=== PATIENT | female | born 1980 | race American Indian/Alaskan Native ===

== ENCOUNTER 2016-11-07 12:54 | Emergency (ER) | payer OTHER ==
[2016-11-07 13:05] VITALS: BP 120/76; PULSE 80; RESP 20; TEMP 98.1; O2SAT 99
--- NOTE | 2016-11-07 13:59 | ED PDOC ---
HPI: Back Time Seen by Provider: 11/07/16 13:06 Chief Complaint (Nursing): Back Pain Chief Complaint (Provider): Left upper back pain History Per: Patient History/Exam Limitations: no limitations Onset/Duration Of Symptoms: Intermittent Episodes Current Symptoms Are (Timing): Still Present Quality Of Discomfort: "Pain" Additional Complaint(s): The patient is a 36yo female, who reports over the past 10 years, she has had intermittent episodes of left sided upper back pain. Patient reports similar pain today and states in the past, she has only visited the ED for her pain. She states in her previous visit, she was informed the pain was due to a muscle spasm. Patient denies taking any pain medication today. she denies any trauma, numbness, tingling, chest pain, rash, shortness of breath, palpitations. She offers no additional medical complaints. Past Medical History Reviewed: Historical Data, Nursing Documentation, Vital Signs Vital Signs: Last Vital Signs Temp 98.1 F 11/07/16 13:02 Pulse 80 11/07/16 13:02 Resp 20 11/07/16 13:02 BP 120/76 11/07/16 13:02 Pulse Ox 99 11/07/16 13:02 - Medical History PMH: Asthma Denies: Diabetes, Hepatitis, HIV, HTN, Seizures, Sexually Transmitted Disease - Surgical History Surgical History: No Surg Hx - Family History Family History: States: Unknown Family Hx - Living Arrangements Living Arrangements: With Family - Social History Current smoker - smoking cessation education provided: No Alcohol: None Drugs: Denies - Home Medications Home Medications: Ambulatory Orders Medication Instructions Recorded Cyclobenzaprine [Cyclobenzaprine 10 mg PO TID #10 tab 11/09/15 HCl] Naproxen [Naprosyn] 500 mg PO Q12H #20 tab 11/09/15 Cyclobenzaprine [Cyclobenzaprine 10 mg PO Q8 PRN #30 tab 11/07/16 HCl] Meloxicam [Mobic] 7.5 mg PO DAILY PRN #30 tab 11/07/16 - Allergies Allergies/Adverse Reactions: Allergies Allergy/AdvReac Type Severity Reaction Status Date / Time No Known Allergies Allergy Verified 08/24/14 04:46 Review of Systems ROS Statement: Except As Marked, All Systems Reviewed And Found Negative Cardiovascular: Negative for: Chest Pain, Palpitations Respiratory: Negative for: Shortness of Breath Musculoskeletal: Positive for: Shoulder Pain (left upper back) Neurological: Negative for: Weakness, Numbness Physical Exam - Reviewed Nursing Documentation Reviewed: Yes Vital Signs Reviewed: Yes - Physical Exam Appears: Positive for: Non-toxic, No Acute Distress Head Exam: Positive for: ATRAUMATIC, NORMAL INSPECTION, NORMOCEPHALIC Skin: Positive for: Normal Color Eye Exam: Positive for: Normal appearance Neck: Positive for: Normal Cardiovascular/Chest: Positive for: Regular Rate, Rhythm Respiratory: Positive for: Normal Breath Sounds. Negative for: Accessory Muscle Use, Respiratory Distress Back: Positive for: Normal Inspection, Muscle Spasm (left sided parascapular muscle spasm noted). 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 Negative for: Deformity, Swelling Neurologic/Psych: Positive for: Alert, Oriented. Negative for: Motor/Sensory Deficits - ECG O2 Sat by Pulse Oximetry: 99 (RA) Pulse Ox Interpretation: Normal Medical Decision Making Medical Decision Making: Time: 1310 Impression: Left upper back pain Plan: -- Flexeril 10 mg PO -- Toradol 15 mg IM Reassess Time: 1400 Patient reports feeling better. Informed of the need to follow up with a specialist for further care and imaging studies and patient expresses understanding. Patient is stable for d/c home. Scribe Attestation: Documented by Jennifer Carpio acting as a scribe for AMANDA Mulligan Provider Attestation: All medical record entries made by the Scribe were at my direction and personally dictated by me. I have reviewed the chart and agree that the record accurately reflects my personal performance of the history, physical exam, medical decision making, and the department course for this patient. I have also personally directed, reviewed, and agree with the discharge instructions and disposition. Disposition - Clinical Impression Clinical Impression: Back pain - Disposition [facility]errals: [facility] [Outside] [facility] [[facility]] Disposition: Routine/Home Disposition Time: 14:00 Condition: STABLE Prescriptions: Cyclobenzaprine [Cyclobenzaprine HCl] 10 mg PO Q8 PRN #30 tab PRN Reason: Muscle Spasm Meloxicam [Mobic] 7.5 mg PO DAILY PRN #30 tab PRN Reason: Pain, Mild (1-3) Instructions: Muscle Spasm (ED) Forms: [facility] (Azeri), [facility] ED School/Work Excuse
== END 2016-11-07 13:54 | disposition home or self-care (01) ==
LOC: H.ER 12:54
DX: M54.9 Dorsalgia, unspecified (principal)
CPT/HCPCS: 96372; 99282; J1885

== ENCOUNTER 2017-05-07 20:24 | Emergency (ER) | payer OTHER ==
[2017-05-07] MEDS ORDERED: Sodium Chloride 0.9% 1,000 ML IV SCH (21:30)
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
[2017-05-07 22:09] LABS: BASO % 0.2 % (0.0-2.0); EOS # 0.2 K/uL (0.0-0.7); EOS % 1.9 % (0.0-4.0); LYMPH # 2.2 K/uL (1.0-4.3); LYMPH % 23.8 % (20.0-40.0); MEAN CELL VOLUME 76.4 fl (81.0-99.0); MEAN CORPUSCULAR HEMOGLOBIN 24.3 pg (27.0-31.0); MEAN CORPUSCULAR HGB CONC 31.8 g/dL (33.0-37.0); MEAN PLATELET VOLUME 9.4 fl (7.2-11.7); MONO # 0.5 K/uL (0.0-0.8); MONO % 5.9 % (0.0-10.0); NEUT # 6.2 K/uL (1.8-7.0); NEUT % 68.2 % (50.0-75.0); NRBC % 0.1 % (0.0-0.0); RBC 4.93 Mil/uL (3.80-5.20); WHITE BLOOD COUNT 9.1 K/uL (4.8-10.8)
[2017-05-07 22:26] LABS: ALBUMIN 3.8 g/dL (3.5-5.0); ALT/SGPT 78 U/L (9-52); AST/SGOT 126 U/L (14-36); BLOOD UREA NITROGEN 13 mg/dl (7-17); GFR AFRICAN-AMERICAN > 60; GFR NON-AFRICAN AMERICAN > 60; LIPASE 95 U/L (23-300)
[2017-05-07] MEDS ORDERED: Potassium Chloride 10 mEq ER Tab PO ONE (22:48)
[2017-05-07 23:23] LABS: SQUAMOUS EPITHIAL 6 /hpf (0-5); URINE BACTERIA RARE (<OCC); URINE BILIRUBIN NEGATIVE (NEGATIVE); URINE BLOOD NEGATIVE (NEGATIVE); URINE CLARITY SLIGHTY-CLOUDY (Clear); URINE COLOR YELLOW (YELLOW); URINE GLUCOSE (UA) NEG (Normal); URINE HYALINE CAST 0-2 /hpf (0-2); URINE LEUKOCYTE ESTERASE TRACE Leu/uL (Negative); URINE PROTEIN NEGATIVE (NEGATIVE)
[2017-05-08] MEDS ORDERED: Albuterol-Ipratrop 3 mg / 0.5 (3 ml) UD ONE (00:34)
[2017-05-08] MEDS ORDERED: Potassium Chloride 10 mEq ER Tab PO ONE ×2 (00:34→00:37)
[2017-05-08] MEDS: Albuterol-Ipratrop 3 mg / 0.5 (3 ml) UD IH SCH (00:58)
[2017-05-08 02:03] VITALS: RESP 18
[2017-05-08 03:26] VITALS: BP 115/66; PULSE 72; TEMP 98.1; O2SAT 99
--- NOTE | 2017-05-08 08:59 | CARD ---
APPROVED REPORT EKG Measurement Heart [id number] <Conclusion> Normal sinus rhythm Possible Anterior infarct, age undetermined Abnormal ECG
--- NOTE | 2017-05-08 09:38 | RAD ---
HISTORY: dizziness COMPARISON: No prior. TECHNIQUE: Chest PA and lateral FINDINGS: LUNGS: No active pulmonary disease. PLEURA: No significant pleural effusion identified. No pneumothorax apparent. CARDIOVASCULAR: Normal. OSSEOUS STRUCTURES: No significant abnormalities. VISUALIZED UPPER ABDOMEN: Normal. OTHER FINDINGS: None. IMPRESSION: No active disease.
== END 2017-05-08 02:45 | disposition home or self-care (01) ==
LOC: H.ER 20:24
DX: J45.909 Unspecified asthma, uncomplicated (principal); R42 Dizziness and giddiness; N39.0 Urinary tract infection, site not specified; F17.210 Nicotine dependence, cigarettes, uncomplicated
CPT/HCPCS: 71046; 80053; 81003; 81025; 83690; 85025; 87086; 93005; 96374; 99283; J2405; J7040